=== PATIENT | female | born 1950 | race Caucasian/White ===

== ENCOUNTER 2022-06-13 07:07 | Day surgery (SDC) | payer MEDICARE, OTHER ==
[~2022-06-13] VITALS: Ht 162.6 cm; Wt 68.0 kg
[~2022-06-13 07:07] MED LIST: MIDAZolam 1 MG/ML 5ML VIAL ONE; fentaNYL/PF 50MCG/1 ML 2ML syringe ONE
[2022-06-13 07:20] VITALS: BP 156/64
[2022-06-13] MEDS ORDERED: LEVO112T39 PO (07:44)
[2022-06-13] MEDS ORDERED: FENO130C14 PO (07:44)
[2022-06-13] MEDS ORDERED: ESTR1TAB19 PO (07:45)
[2022-06-13] MEDS ORDERED: LOSA50TA64 PO (07:45)
[2022-06-13] MEDS ORDERED: ACET1TAB25 PO (07:47)
[2022-06-13] MEDS ORDERED: ALBU8HFA PO (07:48)
[2022-06-13] MEDS ORDERED: ETAN50CA3 SUBCUT (07:49)
[2022-06-13] MEDS ORDERED: TRIA15OI9 TOP (07:49)
[2022-06-13 08:55] VITALS: BP 129/53
[2022-06-13 09:05] VITALS: BP 116/63
[2022-06-13 09:15] VITALS: BP 126/55
[2022-06-13 09:25] VITALS: BP 129/55
== END 2022-06-13 09:30 | disposition home or self-care (01) ==
LOC: GI LAB 07:07
PROVIDERS: ATTEND Specialist
DX: K59.00 Constipation, unspecified (principal); K92.1 Melena; D12.0 Benign neoplasm of cecum; D12.4 Benign neoplasm of descending colon; K64.8 Other hemorrhoids; K63.89 Other specified diseases of intestine; Z86.010 Personal history of colon polyps
CPT/HCPCS: 45380; G0500; J2250; J3010; J7030; Z7512; 99152; 99153; A4620